=== PATIENT | male | born 1990 | race Two or more races ===

== ENCOUNTER 2017-11-26 15:32 | Emergency (ER) | payer MEDICAID ==
[~2017-11-26] VITALS: Ht 182.9 cm; Wt 81.0 kg
[2017-11-26] MEDS ORDERED: KETOROLAC 60MG/2ML VIAL IM ONE (17:15)
[2017-11-26] MEDS ORDERED: CYCLOBENZAPRINE 10MG TABLET PO ONE (17:15)
[2017-11-26 18:24] VITALS: BP 128/95
== END 2017-11-26 18:29 | disposition home or self-care (01) ==
LOC: ER 15:32
DX: M54.5 Low back pain (principal); F17.200 Nicotine dependence, unspecified, uncomplicated; Z88.5 Allergy status to narcotic agent
CPT/HCPCS: 96372; 99283; J1885